=== PATIENT | male | born 1995 | race Caucasian/White ===

== ENCOUNTER 2016-03-05 12:09 | Emergency (ER) | payer MEDICAID ==
[~2016-03-05 12:09] MED LIST: CLEOCIN HCL300 MG PO
[2016-03-05 12:15] VITALS: BP 126/92; PULSE 70; TEMP 98
== END 2016-03-05 12:22 | disposition home or self-care (01) ==
LOC: COL.ER 12:09
DX: Z48.02 Encounter for removal of sutures (principal)

== ENCOUNTER 2016-05-03 17:40 | Emergency (ER) | payer OTHER ==
[~2016-05-03] VITALS: Ht 167.6 cm; Wt 84.1 kg
[2016-05-03 17:45] VITALS: BP 136/93; PULSE 71; TEMP 99.8
== END 2016-05-03 18:26 | disposition home or self-care (01) ==
LOC: COL.ER 17:40
DX: S63.501A Unspecified sprain of right wrist, initial encounter (principal); S80.02XA Contusion of left knee, initial encounter; V13.4XXA Pedal cycle driver injured in collision with car, pick-up truck or van in traffic accident, initial encounter; Y92.410 Unspecified street and highway as the place of occurrence of the external cause